=== PATIENT | female | born 1990 | race Caucasian/White ===

== ENCOUNTER 2024-09-13 20:25 | Inpatient (IN) | payer OTHER ==
[2024-09-13] MEDS: LACTATED RINGERS SOLUTION 1,000 ML IV SCH (22:50)
[2024-09-13 23:05] LABS: ABSOLUTE IMMATURE GRANULOCYTES 0.09 x10^3/uL (0.0-0.031); BASOPHILS # 0.08 x10^3/uL (0.01-0.08); EOSINOPHIL % 0.3 % (0.7-5.8); EOSINOPHILS # 0.04 x10^3/uL (0.04-0.36); HEMATOCRIT 28.4 % (34.1-44.9); HEMOGLOBIN 8.4 g/dL (11.2-15.7); MCHC 29.6 g/dl (32.2-35.5); MEAN CELL VOLUME 80.2 fl (79.4-94.8); MEAN PLT VOLUME 11.1 fl (9.4-12.3); MONOCYTE # 0.73 x10^3/uL (0.24-0.86); MONOCYTE % 4.9 % (4.7-12.5); PLATELET COUNT 333 x10^3/uL (182-369); RDW 16.4 % (12.1-16.8)
[2024-09-13 23:16] LABS: INR 0.95 (0.83-1.09); PROTHROMBIN TIME (PATIENT) 10.5 SEC (9.7-13.0)
[2024-09-13 23:18] LABS: ACTIVATED PTT 26.1 SECONDS (25.2-36.5)
[2024-09-13] MEDS ORDERED: NALOXONE HCL 0.4 MG/ML VIAL IVPUSH PRN (23:18)
[2024-09-13] MEDS ORDERED: FENTANYL/BUPIVACAINE/NS/PF - PCEA - 50 ML DISP.SYRIN EP ONE (23:23)
[2024-09-13 23:26] VITALS: BMI 36.1
[2024-09-13 23:29] LABS: POTASSIUM 4.3 mmol/L (3.5-5.1)
[2024-09-13 23:31] LABS: CALCIUM 8.9 mg/dL (8.5-10.1)
[2024-09-13] MEDS ORDERED: OXYTOCIN 20 UNITS in 0.9% NS 20 UNIT/1,000 ML INFUS.BAG IV ONE (23:31)
[2024-09-13 23:32] LABS: BLOOD UREA NITROGEN 11.3 mg/dL (7-18)
[2024-09-13 23:35] LABS: CREATININE 0.7 mg/dL (0.55-1.3)
[2024-09-13] MEDS: FENTANYL/BUPIVACAINE/NS/PF - PCEA - 50 ML DISP.SYRIN EP SCH (23:45)
[2024-09-14] MEDS ORDERED: TERBUTALINE SULFATE 1 MG/1 ML VIAL SQ ONE (00:11)
[2024-09-14] MEDS: TERBUTALINE SULFATE 1 MG/1 ML VIAL SQ ONE (00:13)
[2024-09-14] MEDS ORDERED: OXYTOCIN 30 UNITS in 0.9% NS 30 UNIT/500 ML INFUS.BAG IVPB SCH (00:15)
[2024-09-14 00:28] LABS: HIV INTERPRETATION NEGATIVE (NEGATIVE)
[2024-09-14] MEDS ORDERED: DEXAMETHASONE SOD PHOSPHATE 4 MG/1 ML VIAL ONE (00:31)
[2024-09-14] MEDS ORDERED: ONDANSETRON 4 MG/2 ML VIAL ONE (00:31)
[2024-09-14] MEDS ORDERED: PHENYLEPHRINE HCL 10 MG/1 ML SINGLE DOSE VIAL ONE (00:31)
[2024-09-14] MEDS ORDERED: morphine SULFATE/PF 1 MG/2 ML (2cc Syringe - QUVA) ONE (00:32)
[2024-09-14] MEDS ORDERED: MIDAZOLAM HCL 2 MG/2 ML SINGLE DOSE VIAL ONE (00:35)
[2024-09-14 00:41] LABS: CORD HCO3 17.5 mmHg (20-29); CORD PCO2 59.1 mmHg (30-78)
[2024-09-14 00:44] LABS: CORD BASE EXCESS -12.3 mmol/L (0-2); CORD HCO3 16.3 mmHg (20-29); CORD PCO2 46.8 mmHg (30-78); CORD pH 7.161 (7.14-7.44)
[2024-09-14] MEDS ORDERED: KETOROLAC TROMETHAMINE 30 MG/1 ML VIAL ONE (01:01)
[2024-09-14] MEDS ORDERED: OXYTOCIN 10 UNITS/ML VIAL ONE (01:02)
[2024-09-14] MEDS ORDERED: ceFAZolin SODIUM 1 GM VIAL ONE (01:02)
[2024-09-14] MEDS: OXYTOCIN 20 UNITS in 0.9% NS 20 UNIT/1,000 ML INFUS.BAG IV SCH (01:15)
[2024-09-14] MEDS ORDERED: ONDANSETRON 4 MG/2 ML VIAL IVPUSH PRN (01:28)
[2024-09-14] MEDS ORDERED: ACETAMINOPHEN 325 MG TABLET (FP) PO PRN (01:32)
[2024-09-14] MEDS ORDERED: METHYLERGONOVINE MALEATE 0.2 MG/1 ML AMP IM PRN (01:32)
[2024-09-14] MEDS ORDERED: IBUPROFEN 800 MG/8 ML IJ IVPB ONE (03:03)
[2024-09-14] MEDS: IBUPROFEN 800 MG/8 ML IJ IVPB PRN (03:12)
[2024-09-14] MEDS: ACETAMINOPHEN 1000 MG/100 ML BAG IVPB PRN (04:38)
[2024-09-14] MEDS: CEFAZOLIN 1 GM in DEXTROSE 5%-WATER - 50 ML IVPB SCH (04:41)
[2024-09-14 07:25] LABS: HEMATOCRIT 24.3 % (34.1-44.9); HEMOGLOBIN 7.1 g/dL (11.2-15.7); MCHC 29.2 g/dl (32.2-35.5); MEAN CELL VOLUME 80.5 fl (79.4-94.8); MEAN PLT VOLUME 10.8 fl (9.4-12.3); PLATELET COUNT 276 x10^3/uL (182-369); RDW 16.5 % (12.1-16.8)
[2024-09-14] MEDS: FERROUS SO4 325 MG TABLET (FP) PO SCH (10:05)
[2024-09-14] MEDS: IBUPROFEN 600 MG TABLET (FP) PO PRN (10:05)
[2024-09-14] MEDS: PRENATAL VITAMINS W/ FOLIC ACID TABLET (FP) PO SCH (10:05)
[2024-09-14] MEDS ORDERED: oxyCODONE HCL 5 MG TABLET PO PRN ×2 (13:32)
[2024-09-14] MEDS: SIMETHICONE 80 MG TAB.CHEW (FP) PO PRN (21:30)
[2024-09-15] MEDS ORDERED: BISACODYL 10 MG SUPP.RECT RC PRN (01:32)
[2024-09-15] MEDS: DIPHTH,PERTUSS(ACELL),TET 0.5 ML DISP.SYRIN IM ONE (09:24)
[2024-09-15] MEDS: ACETAMINOPHEN 325 MG TABLET (FP) PO PRN (09:25)
[2024-09-15 09:47] VITALS: RESP 18
[2024-09-15] MEDS: IBUPROFEN 600 MG TABLET (FP) PO PRN (20:33)
[2024-09-15] MEDS: SENNOSIDES/DOCUSATE COMBO (SENNA PLUS) TABLET (UD) PO PRN (21:32)
[2024-09-16 10:05] VITALS: BP 126/72; PULSE 91; TEMP 98.4
== END 2024-09-16 16:55 | disposition home or self-care (01) | DRG 788 ==
LOC: JDEL 20:25 → JLDR 22:04 → J3W 09-14 03:53
PROVIDERS: ADMIT Obstetrics & Gynecology; ATTEND Obstetrics & Gynecology
PROC: 10D00Z1 Extraction of Products of Conception, Low, Open Approach (ICD-10-PCS; principal; 2024-09-14)
DX: O36.8330 Maternal care for abnormalities of the fetal heart rate or rhythm, third trimester, not applicable or unspecified (principal); O34.219 Maternal care for unspecified type scar from previous cesarean delivery; O69.1XX0 Labor and delivery complicated by cord around neck, with compression, not applicable or unspecified; Z3A.38 38 weeks gestation of pregnancy; Z37.0 Single live birth
CPT/HCPCS: 36415; 36600; 59025; 74018-TC-FY; 80048; 82803; 85025; 85610; 85730; 86780; 86850; 86900; 86901; 87389; 88307-TC; 90715; 94010; J0131